=== PATIENT | male | born 1980 | race Caucasian/White ===

== ENCOUNTER 2025-07-27 09:33 | Outpatient (AMB) | payer BC, SELFPAY ==
--- NOTE | 2025-07-27 09:36 | A.OFFPC_ITS ---
Vital Signs 07/27/25 09:39 Height 5 ft 11 in Weight 194 lb 6 oz BMI 27.1 BP 110/76 Blood Pressure Location Lt brachial Position Sitting Respiration 16 Pulse 76 Pulse Source Pulse Oximeter Temp 97.1 F Temp Source Temporal Artery Scan Pulse Oximetry (%) 98 Oxygen Delivery Method Room Air Intake Visit Reasons: Annual-Laron pt - see comments Pmo Business Analyst Required: No Accompanied by: Self / Same As Patient Allergies No Known Allergies Allergy (Verified 07/27/25 09:41) Medication List - Last Reconciled 07/27/25 by Vanessa Larry MD omeprazole magnesium (Prilosec OTC) 20 mg PO DAILY Tobacco use date assessed: 07/27/25 Dental Screening Dental Screen Date: 07/27/25 Did you have a dental visit in the last 12 months?: Yes Did you have a dental problem in the last 6 months where you did not have access to dental care?: No Was dental information given to patient?: Patient has dentist HPI HPI Comments History of Present Illness Details The patient is a 45 year old male presenting to [facility] and for an annual physical examination. Anxiety: The patient reports experiencing anxiety and stress, which he feels has been more pronounced this year due to financial strain and various life events. He is currently interviewing for a new job, which he hopes will alleviate some of his stress. Gastroesophageal reflux disease: The patient manages his GERD with hvml-cfk-kwbqgou omeprazole (Prilosec), which he finds has effectively helped control his heartburn symptoms. Fatigue: The patient reports feeling more sluggish and experiencing sleep challenges, which he attributes to stress. Preventative Care: Colonoscopy: As the patient recently turned 45, he is now due for his first screening colonoscopy Medical History: - Gastroesophageal reflux disease - Anxiety Medications: - Omeprazole (Prilosec) elpe-ztw-afncttj for gastroesophageal reflux disease. Social History: - Exercise/Activity: He walks and plays with his dogs for recreation. - Family: He is with 2 children. 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 1. Little interest or pleasure in doing things: not at all 2. Feeling down, depressed, or hopeless: several days 3. Trouble falling or staying asleep, or sleeping too much: several days 4. Feeling tired or having little energy: more than half the days 5. Poor appetite or overeating: more than half the days 6. Feeling bad about yourself - or that you are a failure or have let yourself or your family down: not at all 7. Trouble concentrating on things, such as reading the newspaper or watching television: not at all 8. Moving or speaking so slowly that other people could have noticed. Or the opposite - being so fidgety or restless that you have been moving around a lot more than usual: not at all 9. Thoughts that you would be better off or of hurting yourself in some way: not at all Total score: 6 Depression Screening Interpretation: Positive Depression Screening Follow-up: Declines treatment Depression Screening Done: Yes 66499 - PHQ-9 Billing: Yes Source: Developed by Drs. Reji Walker, Yue Steinberg, Phil Zhao and colleagues, with an educational tyson from [employer]. Thrive Questionnaire Date Thrive assessed: 07/27/25 I am a: Patient What is your living situation today?: I have a steady place to live Within the past 12 months, did the food you bought not last and you didn't have the money to get more?: Never true Within the past 12 months, did you worry whether your food would run out before you got money to buy more?: Never true Do you have trouble paying for medicines?: No Do you have trouble getting transportation to medical appointments?: No Do you have trouble paying your heating and electricity bill?: No Do you have trouble taking care of your child, family member or friend?: No Do you have trouble with day-to-day activities such as bathing, preparing meals, shopping, managing finances, etc.?: No Are you currently unemployed and looking for a job?: No Are you interested in more education?: No Please select the resources that you would like help with: None Currently or been in a relationship where the following occur: No concerns reported THRIVE Score: 0 AUDIT C Alcohol Use Questionnaire (AUDIT-C) 1. How often do you have a drink containing alcohol?: 2-4 times a month 2. How many drinks containing alcohol do you have on a typical day when you are drinking?: 1 or 2 3. How often do you have six or more drinks on one occasion?: Never Total Score: 2 CAIT-7 AMB Questionnaire CAIT-7 Date CAIT - 7 assessed: 07/27/25 Feeling nervous, anxious, or on edge: 1 = Several days Not being able to stop or control worryin = More than half the days Worrying too much about different things: 2 = More than half the days Trouble relaxin = Several days Being so restless that it is hard to sit still: 0 = Not at all Becoming easily annoyed or irritable: 0 = Not at all Feeling afraid as if something awful might happen: 0 = Not at all Total CAIT-7 score (0-4 normal; 5-9 mild; 10-14 moderate; 15-21 severe): 6 Source: Developed by Drs. Reji Walker, Yue Steinberg, Phil Zhao and colleagues, with an educational tyson from [employer]. Review of Systems Narrative Review of Systems - General: Reports feeling more sluggish and having difficulty sleeping, which he attributes to stress. - Gastrointestinal: Denies significant heartburn, with symptoms well-managed on adjb-yqi-edzilsb medication. - Musculoskeletal: Denies pain. - Psychiatric: Reports anxiety and stress. Physical exam (Primary Care) Vital Signs: Last Vital Signs Temp 97.1 F 07/27/25 09:39 Pulse 76 07/27/25 09:39 Resp 16 07/27/25 09:39 BP 110/76 07/27/25 09:39 Pulse Ox 98 07/27/25 09:39 Oxygen Delivery Method Room Air 07/27/25 09:39 BMI result Body Mass Index 27.1 Tobacco/Smoking Status: Tobacco use Status Tobacco use date assessed 07/27/25 07/27/25 09:39 Patient Tobacco Use Status Never used Tobacco 07/27/25 09:43 e-Cigarette/Vaping Use Never Used 07/27/25 09:43 PHQ-9: PHQ-9 Score PHQ-9: Total score 6 07/27/25 17:12 Depression Screening Interpretation: Positive Depression Screening Follow-up: Declines treatment Thrive Assessment: Date of Thrive Assessment Date Thrive assessed 07/27/25 07/27/25 09:39 Currently or been in a relationship where the following occur: No concerns reported Narrative Physical Exam - Gen: NAD - HEENT: Left ear is clear. Right ear has a small amount of peripheral cerumen but is otherwise clear. Throat is clear. - Cardiovascular: Regular rate and rhythm. A very soft murmur is present. - Pulmonary: Lungs are clear to auscultation. - Abdomen: Soft and non-tender with normoactive bowel sounds. - Extremities: trace edema bilaterally Office Procedures Flu Questionnaire Does the patient have a severe egg allergy?: No Does the patient have severe life threatening allergies?: No Does the patient have a fever or illness today?: No Has the patient ever had Guillain-Hepler Syndrome?: No Has the patient ever had any past reaction to a flu shot?: No Immunizations Fluarix [id number] (PF) 45 mcg (15 mcg x 3)/0.5 mL IM syringe Performing Provider: Vanessa Larry MD Performing Location[facility] Administered by: Heide Kelly LPN on 07/27/25 10:00 Dose Route Admin Location Dispensed Lot Number Expiration Date [employer] [place] 0.5 mL IM Left Deltoid 0.5 mL [id number] 03/09/26 [id number] [employer]INE VIS Given Date VIS Provided VIS Publication Date 07/27/25 Single Vaccine 24 Eligibility Eligibility Date Funding Source Not [facility] Eligible 07/27/25 Private Coding Level of Care Code Est Pt Prev Care 40-64y(73363) Diagnoses Routine adult health maintenance Z00.00 Fatigue, unspecified type R53.83 Fatigue type: unspecified Additional Codes PHQ-9 - 68200 - PHQ-9 Billing: Yes ([id number]) Assessment & Plan Assessment & Plan (1) Routine adult health maintenance: Code(s): Z00.00 - Encounter for general adult medical examination without abnormal findings Category: Medical (2) Fatigue: Code(s): R53.83 - Other fatigue Category: Medical Qualifiers: Fatigue type: unspecified Qualified Code(s): R53.83 - Other fatigue Plan Assessment and Plan 1. Health Maintenance/Annual Physical Exam - The patient is a 45-year-old male establishing care. - An order for a fasting lab panel, including CBC, CMP, glucose, and a lipid panel, has been placed. - A referral will be made for a screening colonoscopy, as he is now of the recommended age. - He will receive an influenza vaccine today. 2. Anxiety/Stress - The patient reports situational anxiety related to financial and family stressors, which is also affecting his sleep. - He will has been encouraged to reach out if he feels the need for formal therapy. 3. Gastroesophageal Reflux Disease - His GERD is stable and well-controlled with noig-ffi-ngepdwq omeprazole. - He will continue his current regimen as needed. 5. Mild Peripheral Edema - Mild swelling in his legs was noted, likely secondary to recent high salt intake. - The patient was counseled on moderating dietary salt and maintaining adequate hydration (48-64 oz daily) to support his baseline low-normal blood pressure. 6. Fatigue - The patient reports feeling more sluggish, likely related to stress and poor sleep. - The ordered lab work will help rule out any underlying organic causes. Plan - A referral will be placed for a screening colonoscopy. - An influenza vaccine will be administered during today's visit. - Fasting labs including a blood count, kidney labs, fasting glucose, and a cholesterol panel have been ordered. - Patient to continue using ihag-bdl-lqqaehv omeprazole for GERD as needed. - Monitor for anxiety symptoms and follow up if he needs further support. - Patient counseled on maintaining hydration with 48-64 ounces of water daily and managing salt intake to reduce leg swelling. - Follow up in 1 year for physical Discussion Notes I explained that due to updated guidelines, he is now due for a screening colonoscopy at age 45, and a referral will be placed for this. We discussed the mild swelling in his legs, its likely connection to salt intake, and the importance of hydration, especially given his baseline low- normal blood pressure. Patient Instructions - Please go to the lab in [place] to get your fasting blood work done. - We have sent a referral for a colonoscopy. The specialist's office will call you to schedule it. If you don't hear from them in a few weeks, please let us know. - Continue taking your kwlm-oxh-znorfwx omeprazole (Prilosec) as needed for acid reflux. - Try to drink 48 to 64 ounces of water each day to stay well-hydrated. - Be mindful of how much salt you eat, as it can contribute to swelling in your legs. Orders: Orders Complete Blood Count Auto Diff Today R53.83 - Other fatigue, Z00.00 - Encounter for general adult medical examination without abnormal findings Lipid Panel Today R53.83 - Other fatigue, Z00.00 - Encounter for general adult medical examination without abnormal findings TSH reflex Free T4 Today R53.83 - Other fatigue, Z00.00 - Encounter for general adult medical examination without abnormal findings Influenza [id number] Immunization Today Z23 - Encounter for immunization Comprehensive Met. Panel Today R53.83 - Other fatigue, Z00.00 - Encounter for general adult medical examination without abnormal findings Referrals Open Access Screening Colonoscopy Referral Z12.11 - Encounter for screening f or malignant neoplasm of colon
[2025-07-27 09:39] VITALS: BP 110/76; PULSE 76; RESP 16; TEMP 36.2; O2SAT 98; BMI 27.1
== END 2025-07-27 10:56 | disposition home or self-care (01) ==
LOC: HO.HMCHD 09:34
PROVIDERS: PCP Internal Medicine; Visit Provider Internal Medicine
DX: Z00.00 Encounter for general adult medical examination without abnormal findings (principal); R53.83 Other fatigue; Z23 Encounter for immunization

== ENCOUNTER → 2025-07-27 09:33 | Outpatient (BNVA) | payer BC, SELFPAY | PROVIDERS: PCP Internal Medicine; Visit Provider Internal Medicine | DX: Z00.00 Encounter for general adult medical examination without abnormal findings (principal); Z23 Encounter for immunization; F41.9 Anxiety disorder, unspecified; K21.9 Gastro-esophageal reflux disease without esophagitis; R60.9 Edema, unspecified; R53.83 Other fatigue; F43.9 Reaction to severe stress, unspecified; Z13.31 Encounter for screening for depression; Z13.39 Encounter for screening examination for other mental health and behavioral disorders | CPT/HCPCS: 90471; 90656; 96127 ==

== ENCOUNTER 2025-08-19 08:27 | Outpatient (REF) | payer BC, SELFPAY ==
[2025-08-19 11:08] LABS: MANUAL DIFF FLAG NO
[2025-08-19 11:31] LABS: Hematocrit 45.0 % (42.0-52.0); Hemoglobin 15.7 g/dl (14.0-18.0); Imm Gran Abs Auto 0.03 X10*3/uL (0.00-0.03); Imm Gran Pct Auto 0.6 % (0.0-0.4); Lymphocytes Absolute Auto 1.7 X10*3/uL (1.2-4.9); Mean Corpuscular HGB Conc 34.9 g/dl (31.0-36.0); Mean Corpuscular Hemoglobin 32.0 pg (27.0-33.0); Mean Corpuscular Volume 91.8 fL (80.0-98.0); NRBC Abs Auto 0.000 X10*3/uL (0.0-0.012); NRBC Pct Auto 0.0 /100WBC (0.0-0.2); Platelet Count 242 X10*3/uL (160-400); Red Blood Count 4.90 X10*6/uL (4.60-5.80); White Blood Count 4.8 X10*3/uL (4.8-10.8)
[2025-08-19 12:08] LABS: Alanine Aminotransferase 70 U/L (0-40); Albumin Level 4.5 g/dL (3.5-5.0); Alkaline Phosphatase 70 U/L (39-117); Anion Gap 8 (12-20); Aspartate Amino Transferase 46 U/L (5-37); Blood Urea Nitrogen 13 mg/dL (9-16); Calcium 9.4 mg/dL (8.4-10.2); Carbon Dioxide 30 mmol/L (22-29); Chloride 107 mmol/L (96-108); Cholesterol 209 mg/dL (<200); Estimated Glomerular Filt Rate > 60; HDL Cholesterol 49 mg/dL (>40); Potassium 4.6 mmol/L (3.3-5.1); Sodium 140 mmol/L (135-145); Total Protein 7.2 g/dL (6.5-8.0); Triglycerides 173 mg/dL (<150)
== END 2025-08-19 08:28 ==
LOC: HO.WFDLDS 08:27
PROVIDERS: Visit Provider Internal Medicine
DX: Z00.00 Encounter for general adult medical examination without abnormal findings (principal); R53.83 Other fatigue; Z13.6 Encounter for screening for cardiovascular disorders
CPT/HCPCS: 36415; 80053; 80061; 84443; 85025